=== PATIENT | female | born 1980 | race Caucasian/White ===

== ENCOUNTER 2021-04-12 17:58 | Observation (INO) | payer MEDICAID, SELFPAY ==
--- NOTE | ~2021-04-12 | XR_ITS ---
EXAMINATION: XR chest 2V DATE: 04/12/2021 18:44 INDICATION: Chest pain TECHNIQUE: PA and lateral views of the chest are obtained. COMPARISON: 02/07/2017 FINDINGS: The lungs are free of acute opacities. An 11 mm nodule of the lingula is stable since 2017, likely old granulomatous disease. There is no pleural effusion or pneumothorax. The cardiomediastina l silhouette is normal. There is mild thoracic spondylosis. IMPRESSION: 1. No acute cardiopulmonary abnormality. Reviewed, dictated and finalized at location A. [place] NURSERY WORKER
--- NOTE | ~2021-04-12 | CT_ITS ---
EXAMINATION: CTA chest PE protocol DATE: 04/12/2021 22:29 INDICATION: Shortness of breath TECHNIQUE: Computed tomography angiography (CTA) of the chest was performed with 100 mL Omnipaque-350 intravenous contrast timed to evaluate the pulmonary arteries. Coronal maximum intensity projection 3D-reconstructions were created by the technologist. The dose-length product (DLP) was 317.62 mGy-cm. Automated exposure control and iterative reconstruction technique were employed. COMPARISON: None. FINDINGS: The pulmonary arteries are moderately well-opacified. No pulmonary embolism is identified. Lungs are free of acute opacities. A calcified nodule of the lingula is consistent with old granuloma tous disease. There is no pleural effusion or pneumothorax. No pathologically enlarged thoracic lymph nodes are identified. The heart size is normal. Surgical changes in the stomach are consistent with weight loss surgery. IMPRESSION: 1. No pulmonary embolism or acute cardiopulmonary abnormality. Reviewed, dictated and finalized at location A. TECHNICIAN
--- NOTE | 2021-04-12 18:01 | ECG_ITS ---
Measurements Intervals [place] Rate: 85 P: -25 AL: 128 QRS: -5 QRSD: 91 T: 38 QT: 363 QTc: 433 Interpretive Statements SINUS OR ECTOPIC ATRIAL RHYTHM VENTRICULAR PREMATURE COMPLEXES BASELINE ARTIFACT- I, II, AVR, V1-V2 BORDERLINE ECG Electronically Signed On 04-13-2021 7:14:01 PHONE MANAGER by Pelon Daniel D.O.
[2021-04-12 18:18] VITALS: BP 148/93; PULSE 78; RESP 16; TEMP 36.5; O2SAT 100
[2021-04-12 18:30] VITALS: PULSE 78
[2021-04-12 18:36] LABS: Basophils Absolute Auto 0.1 K/mm3 (0.0-0.1); Eosinophils Percent Auto 0.7 % (0-4.4); Hematocrit 34.7 % (37.0-47.0); Hemoglobin 10.9 g/dL (12.0-15.0); Immature Granulocyte Absolute 0.02 K/mm3 (0.00-0.031); Immature Granulocyte Percent A 0.3 % (0-0.5); Lymphocytes Absolute Auto 2.15 K/mm3 (0.9-3.2); Lymphocytes Percent Auto 36.4 % (18.3-44.2); Mean Corpuscular HGB Conc 31.4 g/dl (32-36); Mean Corpuscular Hemoglobin 23.9 pg (26-34); Mean Corpuscular Volume 75.9 fl (80-100); Mean Platelet Volume 8.8 fl (7.4-10.4); Monocytes Absolute Auto 0.5 K/mm3 (0.1-0.6); Monocytes Percent Auto 8.1 % (2.6-8.5); Neutrophils Absolute Auto 3.2 K/mm3 (1.3-6.7); Neutrophils Percent Auto 53.5 % (45.5-73.1); Platelet Count Result 306 k/mm3 (150-375); Red Blood Count 4.57 M/mm3 (4.2-5.4); Red Cell Distribution Width 17.8 % (11.5-14.5); White Blood Count 5.9 K/mm3 (4.5-10.0)
[2021-04-12 18:43] LABS: Anion Gap 13 mmol/L (8-16); Blood Urea Nitrogen 6 mg/dL (7-17); Calcium 8.8 mg/dL (8.4-10.2); Carbon Dioxide 18 mmol/L (22-30); Chloride 101 mmol/L (98-107); Estimated CRCL calculation 102 ml/min; Estimated Glomerular Filt Rate > 60; Glucose 86 mg/dL (65-110); INR 0.9; Potassium 3.5 mmol/L (3.4-5.0); Prothrombin Time 12.5 Seconds (11.1-14.7); Sodium 132 mmol/L (137-145)
[2021-04-12] MEDS: ASPIRIN 81 MG CHEWABLE TABLET 324 MG PO (18:43)
[2021-04-12 18:44] LABS: Partial Thromboplastin Time 26.6 SECONDS (22.3-36.8)
[2021-04-12 18:54] LABS: Troponin I < 0.012 ng/mL (0.000-0.034)
[2021-04-12 19:00] VITALS: BP 131/87; PULSE 81; RESP 18; O2SAT 100
--- NOTE | 2021-04-12 19:18 | ED.CHESTPAIN ---
HPI - Chest Pain General Chief Complaint: Chest Pain Stated Complaint: chest pain Time Seen by Provider: 04/12/21 18:14 Source: patient Mode of arrival: ambulatory Limitations: no limitations History of Present Illness HPI narrative: 40-year-old female Here for evaluation of left-sided chest pain of a weeks duration Patient says that initially her chest pain began when she was arguing with her ex- on the phone however subsequent to that it has been caused by exertion and accompanied by severe fatigue She does not have a cough, fever, diaphoresis or nausea She says it has been more frequent and severe for the last 2 or 3 days Pains tend to be sharp and radiating to the middle of her back and if she is able to lay down and relax and generally goes away She mentions a lot of stress and anxiety due to the aforementioned marital issues as well as effectively being a single mom at this point However she is also a long-term pack-a-day smoker and has a strongly positive family history of premature coronary artery disease Related Data Allergies Allergy/AdvReac Type Severity Reaction Status Date / Time No Known Allergies Allergy Unverified 02/07/17 09:42 Review of Systems Review of Systems: All systems reviewed & are unremarkable except as noted in HPI and below Constitutional: Constitutional: Reports no additional constitutional complaints, Denies chills, Reports fatigue, Denies fever(s), Denies headache(s) and Reports weakness Eyes: Eyes: Reports change in vision Comments: 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 ENT: Denies headache(s) and Denies sore throat Cardiovascular: Cardiovascular: Reports chest pain, Reports radiating jaw, neck or arm pain and Denies dyspnea Respiratory: Respiratory: Denies cough and Denies dyspnea Gastrointestinal: Gastrointestinal: Denies abdominal pain, Denies diarrhea and Denies vomiting Genitourinary: Genitourinary: Denies urinary frequency and Denies dysuria Musculoskeletal: Musculoskeletal: Reports myalgias, Denies deformity, Denies arthralgias, Denies joint swelling and Denies numbness Integumentary/Breasts: Skin/Breast: Denies rash and Denies wounds Neurologic: Denies headache(s), Denies focal weakness and Denies numbness Psychiatric: Psychiatric: Reports no additional psychiatric complaints and Reports anxiety Endocrine: Endocrine: Reports no additional endocrine complaints Hematologic/Lymphatic: Hematologic/Lymphatic: Reports no additional hematologic/lymphatic complaints Allergic/Immunologic: Allergic/Immunologic: Reports no additional allergic/immunologic complaints [facility] Family History Family History (Updated 04/12/21 @ 19:25 by Jordin Quiles MD) Other Acute myocardial infarction Heart disease Social History Social History (Updated 04/12/21 @ 19:25 by Jordin Quiles MD) Smoking status: Current every day smoker Exam Const: General: cooperative, no acute distress and alert Nutritional Appearance: obese Orientation/consciousness: patient oriented x3 (alert) HENMT: Head: normal to inspection, normocephalic and atraumatic Ears: external ears normal General nose exam: no epistaxis Eyes: Conjunctivae: conjunctivae normal EOM: EOMs intact bilaterally Neck: Neck: normal visual inspection, supple and no JVD Chest: Chest palpation & inspection: no tenderness Resp: Effort & Inspection: normal respiratory effort and not labored Auscultation: clear to auscultation bilaterally, no rales, no rhonchi, no wheezes and other (BS =) Cardio: Rate: regular rate Rhythm: regular rhythm Heart sounds: no murmurs GI: GI Palp: Yes Soft to palpation, No Tenderness to palpation present (GI), No Guarding due to palpation present (GI) and No Rebound tenderness present Skin: General skin exam: normal color and no rashes or lesions noted Neuro: General: patient oriented x3 (alert) and moves all extremities Speech: normal speech Extrem: General: normal
--- NOTE | 2021-04-12 19:42 | PC.NURSE ---
Called Lab at 1941, agreed to add d-dimer to blue top already in lab
[2021-04-12 20:02] LABS: D Dimer 1.96 ug/mL (<0.48)
[2021-04-12 21:41] LABS: Troponin I < 0.012 ng/mL (0.000-0.034)
--- NOTE | 2021-04-12 22:14 | PC.NURSE ---
Patient being taken to CT via stretcher.
[2021-04-12 22:58] VITALS: BP 135/84; PULSE 95; RESP 17; TEMP 36.1; O2SAT 100
[2021-04-13] VITALS (20 sets, daily range): BP systolic 114–138; BP diastolic 34–104; PULSE 76–124; RESP 16–22; TEMP 36.2–37.1; O2SAT 95–100; BMI 31.4
--- NOTE | 2021-04-13 00:35 | PM.IMHP ---
H&P: HPI History of Present Illness Date/Time: 04/13/21 00:35 Chief Complaint: Shortness of breath Narrative: This is a 40-year-old female with past medical history significant for morbid obesity she is status past gastric bypass surgery she has lost 200+ lb patient is a current every day daily smoker of 1+ pack of cigarettes, right eye trauma and loss of vision. Patient presented to the emergency room due to shortness of breath ongoing for the last week or so has been having intermittent chest pains palpitations cough nonproductive feeling very short of breath with minimal exertion denies any leg swelling ,PND or o,rthopnea no syncope ,near syncope, dizziness or lightheadedness, no fevers ,no rigors, no chills, no nausea, no vomiting, no abdominal pain ,no diarrhea, no claudication, she is used to walking 8 miles a day her job is roller operator. According the patient this has been happening for the last week or so and attributes these to being under a lot of stress. Preliminary workup was significant for an elevated D-dimer a CT angio of the chest did not show acute pulmonary emboli and ECG was significant for sinus tachycardia with premature ventricular contractions, a CBC showed a hemoglobin of 10 and an MCV of 75. Decision has been made to admit the patient for further assessment treatment and evaluation. Review of Systems Review of Systems: Shortness of breath palpitations fatigue decreased stamina Constitutional: Constitutional: Denies daytime sleepiness, Denies excessive sweating, Reports fatigue, Denies fever(s), Denies malaise, Denies night sweats, Denies poor appetite, Denies weakness and Reports weight loss (Intentional after gastric bypass) Eyes: Eyes: Denies change in vision Comments: Blindness of the right eye ENT: Denies dysphagia, Denies vertigo, Denies dizziness, Denies nasal congestion, Denies nasal discharge, Denies nasal obstruction and Denies odynophagia Cardiovascular: Cardiovascular: Reports chest pain, Denies claudication, Denies lightheadedness, Denies radiating jaw, neck or arm pain, Reports palpitations, Reports dyspnea on exertion and Denies orthopnea Comments: Palpitations hearing her own heartbeat Respiratory: Respiratory: Denies change in phlegm color, Denies chest congestion, Reports cough, Denies excessive phlegm production, Denies pain on inspiration, Denies pain with cough, Reports dyspnea and Reports dyspnea on exertion Gastrointestinal: Gastrointestinal: Denies dyspepsia, Denies heartburn, Denies nausea and Denies vomiting Musculoskeletal: Musculoskeletal: Reports no additional musculoskeletal complaints and Denies joint swelling Integumentary/Breasts: Skin/Breast: Denies rash Neurologic: Denies abnormal gait, Denies vertigo, Denies dizziness, Denies syncope, Denies focal weakness and Denies Sensory deficit (Neuro) Psychiatric: Psychiatric: Reports no additional psychiatric complaints, Reports as per HPI and Reports anxiety Endocrine: Endocrine: Reports no additional endocrine complaints and Reports as per HPI Hematologic/Lymphatic: Hematologic/Lymphatic: Reports no additional hematologic/lymphatic complaints and Reports as per HPI Allergic/Immunologic: Allergic/Immunologic: Reports no additional allergic/immunologic complaints and Reports as per HPI [facility] Family History Family History Other Acute myocardial infarction Heart disease Social History Social History (Updated 04/12/21 @ 19:25 by Jordin Quiles MD) Smoking packs per day: 1 Smoking cigarettes per day: 20.0 Years smoked: 25 Smoking pack-years: 25.00 Smoking status: Current every day smoker Tobacco type: cigarettes Alcohol intake: current Drinks per week: 8 Substance use: former Substance use type: crack/cocaine Last use: 20 years ago Spiritual care concerns: Yes (restorationism) Meds Home Medications and Allergies Allergies Allergy/AdvReac Type Severity
[2021-04-13 01:12] LABS: Troponin I < 0.012 ng/mL (0.000-0.034)
[2021-04-13 01:16] LABS: Free T4 Free Thyroxine 0.96 ng/mL (0.78-2.19)
--- NOTE | 2021-04-13 01:45 | ADMGEN ---
This patient, Mirna Larios, was admitted to Intensive Care Unit-6. Patient/family oriented to hospital policies and general routines including ID bracelet, bed and alarms, visiting hours, pain management, procedures, bathroom and other care routines, personal items, smoking policy, room service/diet, and visiting hours. Information on how to activate the Rapid Response Team has been discussed. Patient/Family are encouraged to report perceived risks to care and to ask questions if they do not understand what they are told or what they should do.
[2021-04-13] MEDS: LACTATED RINGERS 1,000 ML 125 ML IV CONT (02:26)
[2021-04-13] MEDS: LORazepam INJ (*CRX) 2 MG/ML VIAL 1 MG IV PUSH (02:26)
[2021-04-13] MEDS: methylPREDNISolone SOD SUCC 125 MG VIAL IV PUSH (02:26)
[2021-04-13] MEDS: IPRATROPIUM BR 0.02% INH SOLN 0.5 MG/2.5 ML VIAL INHALATION ×3 (04:08→20:22)
[2021-04-13] MEDS: ALBUTEROL SULFATE NEB 2.5 MG/0.5 ML INH INHALATION ×3 (04:08→20:22)
--- NOTE | 2021-04-13 08:09 | PM.CNPUL ---
Assessment and Plan Assessment and plan (1) Asthma-COPD overlap syndrome: Code(s): J44.9 - Chronic obstructive pulmonary disease, unspecified Status: Acute Assessment and Plan: Patient has an 8 year history of intermittent shortness of breath, wheezing, chest tightening that has improved with albuterol and she is a current smoker at 1 PPD with a 27 pack year history of tobacco use. I have no previous PFTs. She may have asthma -COPD overlap syndrome with an acute exacerbation at this time. I see no evidence of pneumonia and she has no change in her cough or phlegm. She has improved with steroids and bronchodilators overnight 04/13 I will decrease her Solu-Medrol to 20 mg IV Q 6 hours and continue her albuterol 2.5 mg nebs q.4 hours standing and ipratropium 0.5 mg nebs q.4 hours standing. At this time I see no need for antibiotics. Patient is on a nicotine patch to help with nicotine withdrawal. patient should be out of bed and ambulate as tolerated. Precipitating factors for this acute exacerbation include tobacco use, stress and anxiety, and possibly uncontrolled sleep apnea. We briefly talked about tobacco cessation as well as the possibility of a sleep study in the future to exclude obstructive sleep apnea. The patient has significant stress and anxiety in her life and this will need to be addressed by her primary team. Will follow with you. History of Present Illness History of Present Illness Consult date: 04/13/21 Requesting physician: Wilfred Jimenez MD Reason for consult: dyspnea Chief complaint: Atypical Chest Pain Narrative: 05/13/2021: This is a new consult for dyspnea on exertion. 40-year-old woman with a history of morbid obesity status post gastric bypass in 2013 with 200 lb weight loss, mild asthma since 2012, obstructive sleep apnea on CPAP from [id number] and tobacco use presents with 3 week history of worsening shortness of breath, dyspnea on exertion, wheezing, chest tightness and chest pain. patient tells me that in 2012 she was followed by her primary physician who told her she had anxiety and possibly mild asthma or reactive airways disease. At that time she was prescribed an albuterol inhaler and she stated that when she took this albuterol inhaler it would help these symptoms. Since 2012 she would have episodes of dyspnea on exertion, wheezing, chest pain without phlegm. Usually these episodes were brought on by stressful situations and or anxiety. At baseline she says she can walk 1 block and then has dyspnea on exertion And her shortness of breath is for the most part with did a ambulation or exertion but occasionally she does have some rest shortness of breath. She does have a chronic cough that is worse in the morning and she will produce phlegm 1 to 2 times a day. approximately 2 weeks ago she had a stress phone discussion with her son who is currently incarcerated. This was a very stressful discussion and after that she developed shortness of breath, chest tightness, wheezing and then chest pain. The symptoms have progressively gotten worse over the last 2 weeks and she presented to the emergency department. She denied fever, chills, rigors, phlegm production, hemoptysis. Patient presented to the emergency room and she had White blood cell count of 5.9 with 0.7% eosinophils=41/uL, d-dimer 1.96, serum bicarbinate 18, chest x-ray with no acute cardiopulmonary abnormality and CT angiogram of the chest that per the chart report is negative for PE, pulmonary edema, pneumonia or masses. There is a calcified nodule in the left lung. The patient was treated for COPD exacerbation with steroids and bronchodilators. Patient states she smoked cigarettes from age 12 to current at 1 pack per day for total of 28 pack years. Patient vapors electronic cigarettes 1 time over 6 months when she knows she will not be able to smoke a cigarette. Patient denies inhaling cocaine, marijuana or
[2021-04-13] MEDS: PANTOPRAZOLE SODIUM IV 40 MG VIAL IV PUSH (08:30)
[2021-04-13] MEDS: NICOTINE (*PBKC) 21 MG PATCH 1 PATCH TRANSDERM (08:30)
--- NOTE | 2021-04-13 13:52 | PM.IMPN ---
Progress Note: A&P Assessment and Plan (1) Acute exacerbation of COPD with asthma: Code(s): J44.1 - Chronic obstructive pulmonary disease with (acute) exacerbation; J45.901 - Unspecified asthma with (acute) exacerbation Status: Acute Assessment and Plan: Patient smokes will 1+ pack of cigarettes daily Has not been worked up for COPD in the outpatient setting PFT as an outpatient Pulmonary service recommendations appreciated. Steroids is being weaned as per Pulmonary Service. Continue bronchodilators. She may need inhalers at the time of discharge. Antibiotics not indicated from pulmonary perspective. (2) Atypical chest pain: Code(s): R07.89 - Other chest pain Status: Acute Assessment and Plan: Doubtful of cardiac origin. Troponins were negative. EKG with no acute ischemic changes. Continue to monitor her on telemetry. Echo is pending. (3) Anxiety: Code(s): F41.9 - Anxiety disorder, unspecified Status: Acute Assessment and Plan: Supportive care (4) Tobacco dependence due to cigarettes: Code(s): F17.210 - Nicotine dependence, cigarettes, uncomplicated Status: Acute Assessment and Plan: Nicotine patch as needed She was encouraged to stop smoking. (5) Lung nodule: Code(s): R91.1 - Solitary pulmonary nodule Status: Acute Assessment and Plan: She has a history of known lung nodule which was 1st seen in January 2020 in [facility] [place] when she had a CT scan of the chest done. She never had any follow-up imaging since then. Chest CT done here showed a calcified nodule in the lingula. Subjective Date/time seen: 04/13/21 13:52 She was feeling much better today in the morning. She still having exertional dyspnea and becomes for the very easily. Her D-dimer was elevated. CT of the chest was performed which showed no evidence of PE. Calcified nodule in the lingula is seen. She does have history of nodule which was seen in January 2020 in [place] when she had a CT scan of the chest done. She is also complaining of on and off chest pain which is mainly on the right side of the sternum. Remained on room air and no significant wheezing on clinical exam. Troponin was negative. Review of Systems Review of Systems: A comprehensive review of systems has been reviewed with the patient and most of the symptoms are negative except the one's mentioned above in HPI. Exam Narrative: General awake and alert not in acute distress Neck supple CVS S1-S2 no murmur Respiratory some occasional rhonchi with no wheezing. GI soft nontender nondistended no hepatosplenomegaly STOCK ASSOCIATE alert oriented x3 and grossly nonfocal neurological exam Psychiatric cooperative appropriate mood and affect Extremities no edema Objective Data Vital Signs Vital Signs: Vital Signs - 24 hr 04/12/21 18:18 04/12/21 18:30 04/12/21 19:00 Temperature 36.5 C Pulse Rate 78 78 81 Respiratory Rate 16 18 Blood Pressure 148/93 H 131/87 Pulse Oximetry 100 100 04/12/21 22:58 04/13/21 00:13 04/13/21 01:39 Temperature 36.1 C L 36.6 C Pulse Rate 95 103 H 93 Respiratory Rate 17 17 21 H Blood Pressure 135/84 126/58 L 116/71 Pulse Oximetry 100 98 97 04/13/21 01:45 04/13/21 02:00 04/13/21 04:00 Temperature 36.6 C 36.6 C Pulse Rate 84 96 114 H Respiratory Rate 20 18 Blood Pressure 114/54 L 138/104 H Pulse Oximetry 99 100 04/13/21 04:09 04/13/21 04:16 04/13/21 06:00 Temperature Pulse Rate 85 76 86 Respiratory Rate 19 16 Blood Pressure Pulse Oximetry 04/13/21 08:00 04/13/21 10:00 04/13/21 13:18 Temperature 36.7 C Pulse Rate 82 99 111 H Respiratory Rate 16 22 H Blood Pressure 118/70 Pulse Oximetry 95 04/13/21 13:27 Temperature Pulse Rate 106 H Respiratory Rate 22 H Blood Pressure Pulse Oximetry Intake/Output Intake/Output: Intake & Output 04/10/21 04/11/21
[2021-04-13] MEDS: ACETAMINOPHEN 325 MG TABLET 650 MG PO (13:57)
[2021-04-13] MEDS: methylPREDNISolone SOD SUCC 40 MG VIAL 20 MG IV PUSH ×2 (15:34→17:34)
[2021-04-13] MEDS: NAPROXEN 250 MG TABLET PO ×2 (16:18→17:33)
--- NOTE | 2021-04-13 16:44 | PC.NURSE ---
This patient, Mirna Larios, was transferred to [[facility] ] on 04/13/21 at 1635. Personal belongings sent with patient. Report given to [Hannah]. Appropriate documentation sent with patient.
--- NOTE | 2021-04-13 16:45 | PC.NURSE ---
patient to room 328 from ICU
[2021-04-13] MEDS: METOCLOPRAMIDE HCL INJ 10 MG/2 ML VIAL (17:47)
[2021-04-13] MEDS: KETOROLAC 30 MG/ML VIAL (*BKC) (17:47)
[2021-04-13] MEDS: ZOLPIDEM TARTRATE (*CRX) 5 MG TABLET PO (20:58)
--- NOTE | 2021-04-13 23:15 | PC.NURSE ---
Patient arrived on the unit at 1055 from IMU. Vitals were obtained and stable. Patient respirations even unlabored and patient does not appear to be in any distress at this time. Patient was placed on tele monitor as ordered. Patient has IV access and is saline locked. Seizure precautions initiated. Bed is padded for patient safety and bed alarm is on. Patient has a history of TBI and seizures. Patient skin is intact but has hives covering upper chest area. Patient is child like and has many questions but is pleasant. Patient was provided a meal tray upon his request. Patient is lying in bed watching TV and staff will continue to monitor.
[2021-04-14] VITALS: PULSE 98
[2021-04-14] MEDS: rOPINIRole HCL 1 MG TABLET 2 MG PO (00:24)
[2021-04-14] MEDS: methylPREDNISolone SOD SUCC 40 MG VIAL 20 MG IV PUSH ×2 (00:24→06:23)
[2021-04-14 01:34] VITALS: PULSE 104; RESP 22
[2021-04-14] MEDS: ALBUTEROL SULFATE NEB 2.5 MG/0.5 ML INH INHALATION ×2 (01:34→08:42)
[2021-04-14] MEDS: IPRATROPIUM BR 0.02% INH SOLN 0.5 MG/2.5 ML VIAL INHALATION ×2 (01:34→08:42)
[2021-04-14 01:36] VITALS: PULSE 98; RESP 22
--- NOTE | 2021-04-14 01:38 | PCRCNOTE ---
Did pts 2am treatment. Pt was agitated at nursing staff for not giving her more medication. She complied with doing her treatment. After treatment started and was going for roughly 2 min pt stated they no longer wanted to do the treatment. Pt stated the treatment makes their mouth dry and they are npo and they were done. they stated they were sleep deprived and no one wants to mess with her . So treatment was terminated and pt did not finish treatment.
[2021-04-14 04:00] VITALS: PULSE 81
[2021-04-14 06:00] VITALS: BP 124/68; PULSE 94; RESP 18; TEMP 36.2; O2SAT 99
[2021-04-14] MEDS: SUMAtriptan SUCCINATE 25 MG TABLET 100 MG PO (06:22)
[2021-04-14 06:46] LABS: Basophils Percent Auto 0.1 % (0.2-1.2); Hematocrit 32.4 % (37.0-47.0); Immature Granulocyte Absolute 0.06 K/mm3 (0.00-0.031); Immature Granulocyte Percent A 0.6 % (0-0.5); Lymphocytes Absolute Auto 0.52 K/mm3 (0.9-3.2); Lymphocytes Percent Auto 5.3 % (18.3-44.2); Mean Corpuscular HGB Conc 30.9 g/dl (32-36); Mean Corpuscular Hemoglobin 23.4 pg (26-34); Mean Corpuscular Volume 75.7 fl (80-100); Monocytes Absolute Auto 0.4 K/mm3 (0.1-0.6); Monocytes Percent Auto 4.2 % (2.6-8.5); Neutrophils Absolute Auto 8.9 K/mm3 (1.3-6.7); Neutrophils Percent Auto 89.8 % (45.5-73.1); Platelet Count Result 306 k/mm3 (150-375); Red Blood Count 4.28 M/mm3 (4.2-5.4); Red Cell Distribution Width 17.7 % (11.5-14.5); White Blood Count 9.9 K/mm3 (4.5-10.0)
[2021-04-14 06:59] LABS: Anion Gap 5 mmol/L (8-16); Blood Urea Nitrogen 14 mg/dL (7-17); Calcium 9.2 mg/dL (8.4-10.2); Carbon Dioxide 26 mmol/L (22-30); Chloride 106 mmol/L (98-107); Cholesterol 147 mg/dL (0-200); Estimated CRCL calculation 121 ml/min; Estimated Glomerular Filt Rate > 60; Glucose 166 mg/dL (65-110); HDL Direct 100 mg/dL; Potassium 4.1 mmol/L (3.4-5.0); Sodium 137 mmol/L (137-145); Triglycerides 36 mg/dL (<150)
[2021-04-14 07:05] LABS: LDL Cholesterol Direct 32 mg/dL
[2021-04-14] MEDS: METOCLOPRAMIDE HCL INJ 10 MG/2 ML VIAL IV PUSH (08:16)
[2021-04-14] MEDS: KETOROLAC 30 MG/ML VIAL (*BKC) IV PUSH (08:16)
[2021-04-14 09:08] LABS: Transferrin 424 mg/dL (206-381)
[2021-04-14 09:22] LABS: Iron 22 ug/dL (37-170)
[2021-04-14] MEDS: NICOTINE (*PBKC) 21 MG PATCH 1 PATCH TRANSDERM (09:52)
[2021-04-14 09:53] VITALS: PULSE 82
[2021-04-14] MEDS: PANTOPRAZOLE SODIUM IV 40 MG VIAL IV PUSH (09:53)
[2021-04-14 10:00] LABS: Ferritin 5.53 ng/mL (6.24-137)
[2021-04-14 10:08] LABS: Percent Iron Saturation 4 % (20-50)
[2021-04-14 10:10] LABS: Folic Acid 10.9 ng/mL (2.76->20)
--- NOTE | 2021-04-14 10:25 | PM.PNPUL ---
Progress Note: A&P Assessment and Plan (1) Asthma-COPD overlap syndrome: Code(s): J44.9 - Chronic obstructive pulmonary disease, unspecified Status: Acute Assessment and Plan: Patient has an 8 year history of intermittent shortness of breath, wheezing, chest tightening that has improved with albuterol and she is a current smoker at 1 PPD with a 27 pack year history of tobacco use. I have no previous PFTs. She may have asthma -COPD overlap syndrome with an acute exacerbation at this time. I see no evidence of pneumonia and she has no change in her cough or phlegm. She has improved with steroids and bronchodilators overnight 04/13 I will decrease her Solu-Medrol to 20 mg IV Q 6 hours and continue her albuterol 2.5 mg nebs q.4 hours standing and ipratropium 0.5 mg nebs q.4 hours standing. At this time I see no need for antibiotics. Patient is on a nicotine patch to help with nicotine withdrawal. patient should be out of bed and ambulate as tolerated. Precipitating factors for this acute exacerbation include tobacco use, stress and anxiety, and possibly uncontrolled sleep apnea. The patient has significant stress and anxiety in her life and this will need to be addressed by her primary team. 04/14 Patient states she is feeling 100% back to normal and is ready for discharge today. She has no wheezing on exam and has been walking the halls. From a pulmonary perspective patient is ready for discharge on these Pulmonary medications: Prednisone 50 mg PO Q day X 5 days Beta agonist, muscarinic antagonist and inhaled corticosteroids that insurance will cover (Trelegy 200/62.5/24 at 1 puffs Q day or Cali 160/9/4.8 at 2 puffs BID) rescue albuterol At 2 puffs q.4 hours p.r.n. shortness of breath and wheezing ropinerole 1mg PO Q HS tobacco cessation: I spent greater than 12 minutes counseling patient on tobacco cessation and told her that is unlikely she will improve if she continues to smoke. Patient has quit cold turkey twice in the past and thinks she can quit cold turkey at this time. We talked about motor techniques that mimic smoking, behavioral modification of stress to combat the cravings and positive reinforcement for not smoking. Follow up in pulmonary clinic in 3-4 weeks. I gave patient our business card and informed our plant care worker. She will need out patient PFTs once she is stable and in lab polysomnogram. Discussed with Gia Ortega (2) DENNIS (obstructive sleep apnea): Code(s): G47.33 - Obstructive sleep apnea (adult) (pediatric) Status: Acute Assessment and Plan: Regarding her obstructive sleep apnea patient states she had a sleep study in [place] at [facility] and was prescribed CPAP and she wore the CPAP from [id number]. She lost weight with her gastric bypass surgery and felt better and discontinued her CPAP on her own. Currently she states that she occasionally has morning headaches, she does not snore, she does not wake herself up with grunts and she does not have daytime hypersomnia. We talked about the possibility of a sleep study in the future to exclude obstructive sleep apnea and periodic leg movement of sleep disorder. she has symptoms consistent with restless legs syndrome and has failed gabapentin in the past. Patient states that ropinirole has helped her. I will prescribe ropinirole 1 mg p.o. q.h.s. on discharge. Subjective Date/time seen: 04/14/21 10:25 Interval history: 05/13/2021: This is a new consult for dyspnea on exertion. 40-year-old woman with a history of morbid obesity status post gastric bypass in 2013 with 200 lb weight loss, mild asthma since 2012, obstructive sleep apnea on CPAP from [id number] and tobacco use presents with 3 week history of worsening shortness of breath, dyspnea on exertion, wheezing, chest tightness and chest pain. patient tells me that in 2012 she was followed by her primary physician who told her she had anxiety and p
--- NOTE | 2021-04-14 11:51 | PM.DS ---
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 Initial labs showed elevated blood pressure 148/93, non tachycardic at 73 beats per minute, afebrile, normal oxygenation on room air. Initial labs showed normal white count, microcytic anemia with a hemoglobin of 10, hematocrit 34%. Normal differential. Elevated D-dimer at 1.9. Hyponatremia at 132. Normal renal function Creatinine 0.6, BUN 6. troponin negative x3. Normal cholesterol panel. TSH normal. Chest x-ray showed no acute cardiopulmonary abnormality. CTA chest showed no PE or acute cardiopulmonary abnormality. On arrival the patient was found to have diffuse wheezing throughout both lung shields. She was admitted into the hospital with IV Solu-Medrol, Duo neb treatments and a consult to pulmonology. Dr. Grove evaluated the patient and has weaned her IV Solu-Medrol with improvement of her symptoms at this time the patient is feeling 100% back to her baseline and ready to be discharged home. Talked to Dr. Grove who recommends discharging on prednisone 50 mg daily for 5 days, triple therapy inhaler with trelegy, rescue albuterol inhaler, ropinerole for restless legs at night, and tobacco sensation given and I prescribed the patient nicotine patches to help her quit smoking at her request. the patient was given sample inhalers by the [facility] which would cover her for 42 days if her insurance does not cover the above inhalers. she will follow-up with Dr. Grove in the office in 3-4 weeks for further evaluation with PFTs and sleep apnea testing The patient was also worked up for her microcytic anemia and was found to be iron deficient with a% saturation of 4%, low vitamin B12 levels at 311. explained the patient that her iron deficiency anemia could be secondary to the amount of NSAID she uses for her headaches. I explained that I would just recommend taking in an acid twice daily for 1 month, ferrous sulfate b.i.d. and vitamin B12 daily which she should already be on due to her history of gastric bypass surgery. I did recommend not using any more NSAIDs and trying to use Tylenol or her Imitrex she has for her headaches. Suggested following up with a primary care within 1 week. Suggested following up with a GI specialist due to her iron deficiency anemia. Return to ER warnings given. The patient understands and agrees the plan all questions answered. (2) Atypical chest pain: Code(s): R07.89 - Other chest pain Status: Acute Assessment and Plan: Doubtful of cardiac origin. Troponins were negative. EKG with no acute ischemic changes. Continue to monitor her on telemetry. (3) Anxiety: Code(s): F41.9 - Anxiety disorder, unspecified Status: Acute Assessment and Plan: Supportive care (4) Tobacco dependence due to cigarettes: Code(s): F17.210 - Nicotine dependence, cigarettes, uncomplicated Status: Acute Assessment and Plan: Nicotine patch Prescribed at discharge She was encouraged to stop smoking. (5) Lung nodule: Code(s): R91.1 - Solitary pulmonary nodule Status: Acute Assessment and Plan: She has a history of known lung nodule which was 1st seen in December/
== END 2021-04-14 12:37 | disposition home or self-care (01) ==
LOC: ANHED 04-13 00:37 → ANHICU 04-13 01:16 → ANH3MEDSUR 04-13 16:46
PROVIDERS: Internal Medicine Critical Care Medicine; Physician Assistant; Admitting Provider Internal Medicine; Emergency Provider Emergency Medicine; Visit Provider Family Medicine
DX: J44.1 Chronic obstructive pulmonary disease with (acute) exacerbation (principal); J45.901 Unspecified asthma with (acute) exacerbation; R06.02 Shortness of breath; R91.8 Other nonspecific abnormal finding of lung field; D50.9 Iron deficiency anemia, unspecified; E66.01 Morbid (severe) obesity due to excess calories; F17.210 Nicotine dependence, cigarettes, uncomplicated; R07.89 Other chest pain; F41.9 Anxiety disorder, unspecified; Z68.31 Body mass index [BMI] 31.0-31.9, adult; Z98.84 Bariatric surgery status
CPT/HCPCS: 36415; 71046; 71275; 80048; 80061; 82607; 82728; 82746; 83540; 83550; 84439; 84443; 84466; 84484; 85025; 85380; 85610; 85730; 93005; 94640; 96361; 96374; 96375; 96376; 99285; A9270; C9113; G0378; G0379; J1885; J2060; J2765; J2920; J2930; J7120; Q9967